=== PATIENT | male | born 1930 | race Caucasian/White ===

== ENCOUNTER → 2016-11-02 | Outpatient (CLI) | payer OTHER | LOC: GMAH 18:06 | PROVIDERS: ATTEND Family Medicine | DX: R31.0 Gross hematuria (principal) ==

== ENCOUNTER → 2016-12-30 | Outpatient (CLI) | payer MEDICARE, OTHER ==
--- NOTE | 2016-12-31 07:55 | MRI ---
EXAM DESCRIPTION: MRI lumbar spine CLINICAL HISTORY: Lumbar spine pain. Radiculopathy, right leg COMPARISON: None Available. TECHNIQUE: Standard sagittal and axial MR images of the lumbar spine. FINDINGS: L5-S1: Moderate facet arthrosis bilaterally right greater than left. Mild annular bulge and endplate osteophyte ridging without canal stenosis or descending nerve impingement. Disc osteophyte ridge abuts and mildly deforms the inferior aspect of the exiting left L5 nerve. No compression. No right L5 nerve impingement L4-5: Moderate facet arthrosis and mild hypertrophy, right greater than left. Annular bulge without descending nerve compression. Mild canal narrowing. Disc osteophyte ridge narrows the inferior aspect of the right foramen abutting the exiting right L4 nerve with minimal deformity. No compression. No left L4 nerve impingement L3-4: Moderate facet arthrosis and hypertrophy. No canal stenosis or descending nerve compression. Minimal retrolisthesis L3 on L4. Disc osteophyte ridge narrows the inferior neural foramina without nerve compression. A small focal protrusion lateral to the left foramen abuts the left L3 nerve with minimal deformity, axial T1 image 24 and T2 image 13. L2-3: Moderate facet arthrosis and mild hypertrophy. Disc degeneration asymmetrically greater to the left of midline. Mild retrolisthesis L2 on L3 with no canal stenosis . Disc osteophyte ridge abuts the descending left L3 nerve. Subarticular recess stenosis related to disc bulge and retrolisthesis. Mild narrowing of the inferior foramina without exiting right L2 nerve compression. A disc osteophyte ridge lateral to the foramen on the left abuts but does not displace or compress left L2 nerve L1-2: Mild facet arthrosis. No focal disc abnormality, canal stenosis or nerve impingement T12-L1: No canal or foraminal narrowing Conus medullaris and cauda equina are normal No marrow infiltration or focal marrow lesion. No paravertebral muscle abnormality No mass or adenopathy in the retroperitoneum IMPRESSION: Multilevel disc and facet degeneration. See above discussion regarding each level with respect to any particular radiculopathy Electronically signed by: Yury Hernandez MD 12/31/2016 7:54 AM CDT
== END | disposition home or self-care (01) ==
LOC: MRI 13:45
PROVIDERS: ATTEND Family Medicine
DX: M54.5 Low back pain (principal)